=== PATIENT | female | born 1950 | race Caucasian/White ===

== ENCOUNTER → 2016-06-16 | Outpatient (CLI) | payer OTHER, MEDICARE | LOC: FIMAGING 10:22 | PROVIDERS: ATTEND Internal Medicine | DX: M81.0 Age-related osteoporosis without current pathological fracture (principal) ==

== ENCOUNTER → 2016-07-15 | Outpatient (CLI) | payer OTHER, MEDICARE | LOC: FIMAGING 11:41 | PROVIDERS: ATTEND Internal Medicine Endocrinology, Diabetes & Metabolism | DX: E21.3 Hyperparathyroidism, unspecified (principal) | CPT/HCPCS: 78070; A9500 ==

== ENCOUNTER → 2016-10-01 | Outpatient (CLI) | payer OTHER, MEDICARE | LOC: FIMAGING 10:59 | PROVIDERS: ATTEND Surgery | DX: E04.1 Nontoxic single thyroid nodule (principal); E21.3 Hyperparathyroidism, unspecified ==

== ENCOUNTER → 2016-10-13 | Outpatient (CLI) | payer OTHER, MEDICARE | LOC: FIMAGING 14:11 | PROVIDERS: ATTEND Internal Medicine | DX: Z12.31 Encounter for screening mammogram for malignant neoplasm of breast (principal) | CPT/HCPCS: G0202 ==

== ENCOUNTER 2016-11-21 11:29 | Observation (INO) | payer OTHER, MEDICARE ==
[2016-11-21] MEDS ORDERED: NS 1,000 ML IV ONE (11:59)
[2016-11-21] MEDS ORDERED: LIDOCAINE 1% 2 ML INJ ID PRN (11:59)
[2016-11-21] MEDS ORDERED: LR 1,000 ML IV ONE (12:22)
[2016-11-21] MEDS ORDERED: BUPIVACAINE 0.25% 30 ML SDV ONE (12:59)
[2016-11-21] MEDS ORDERED: THROMBIN (BOVINE) 5,000 UNIT VIAL TP ONE (12:59)
[2016-11-21] MEDS ORDERED: MIDAZOLAM 2 MG/2 ML VIAL IVP ONE (13:01)
--- NOTE | 2016-11-21 13:02 | PDANEPAE ---
ANE History of Present Illness hyperparathyroidism ANE Past Medical History - Cardiovascular History Hx Hypertension: No Hx Arrhythmias: Yes Hx Chest Pain: No Hx Coronary Artery / Peripheral Vascular Disease: No Hx CHF / Valvular Disease: No Hx Palpitations: No Cardiovascular History Comment: was told by her dentist years ago she had a heart murmur - Pulmonary History Hx COPD: No Hx Asthma/Reactive Airway Disease: No Hx Recent Upper Respiratory Infection: No Hx Oxygen in Use at Home: No Hx Sleep Apnea: No Sleep Apnea Screening Result - Last Documented: Negative - Neurologic History Hx Cerebrovascular Accident: No Hx Seizures: No Hx Dementia: No Neurologic History Comment: hx of back surgery - Endocrine History Hx Diabetes: No Endocrine History Comment: hyperpararthyroidism - Renal History Hx Renal Disorders: No - Liver History Hx Hepatic Disorders: No - Neurological & Psychiatric Hx Hx Neurological and Psychiatric Disorders: Yes Neurological / Psychiatric History Comment: depression - Cancer History Hx Cancer: No - Congenital Disorder History Hx Congenital Disorders: No - GI History Hx Gastrointestinal Disorders: No - Other Health History Other Health History: wears reading glasses - Chronic Pain History Chronic Pain: No - Surgical History Prior Surgeries: back surgery. appy. trigger finger. breast reduction ANE Review of Systems - Exercise capacity METS (RN): 4 METS ANE Patient History - Allergies Allergies/Adverse Reactions: No Known Allergies Allergy (Unverified 10/20/16 11:40) - Home Medications Home Medications: Aspirin [Aspirin 81mg (*)] 81 mg PO DAILY 10/20/16 [Last Taken 11/14/16] Bupropion HCl [Wellbutrin Xl] 300 mg PO DAILY 10/20/16 [Last Taken Unknown] Cholecalciferol Vit D3 [Vitamin D3 (*)] 2,000 units PO DAILY 10/20/16 [Last Taken 11/20/16] Citalopram [CeleXA] 20 mg PO DAILY 10/20/16 [Last Taken 11/21/16 09:30] RX: SIMVASTATIN 10 mg PO HS 10/20/16 [Last Taken Unknown] - NPO status NPO Since - Liquids (Date): 11/21/16 NPO Since - Liquids (Time): 09:30 NPO Since - Solids (Date): 11/20/16 NPO Since - Solids (Time): 06:30 - Smoking Hx Smoking Status: Never smoked - Family Anes Hx Family Hx Anesthesia Complications: none ANE Labs/Vital Signs - Vital Signs Blood Pressure: 158/98 Heart Rate: 66 Respiratory Rate: 14 O2 Sat (%): 98 Height: 160.02 cm Weight: 45.359 kg ANE Physical Exam - Airway Neck exam: FROM Mallampati Score: Class 2 Mouth exam: normal dental/mouth exam - Pulmonary Pulmonary: no respiratory distress - Cardiovascular Cardiovascular: regular rate and rhythym - ASA Status ASA Status: II ANE Anesthesia Plan Anesthesia Plan: general endotracheal anesthesia
[2016-11-21] MEDS ORDERED: fentaNYL 100 MCG/2 ML INJ ONE (13:04)
[2016-11-21] MEDS ORDERED: PROPOFOL 200 MG/20 ML VIAL ONE (13:04)
[2016-11-21] MEDS ORDERED: ROCURONIUM 50 MG/5 ML VIAL ONE (13:04)
[2016-11-21] MEDS ORDERED: DEXAMETHASONE 4 MG/ML VIAL ONE (13:04)
[2016-11-21] MEDS ORDERED: ONDANSETRON 4 MG/2 ML VIAL ONE (13:04)
[2016-11-21] MEDS ORDERED: HYDROmorphONE/DILAUDID 2 MG/ML INJ ONE (13:04)
[2016-11-21] MEDS ORDERED: LIDOCAINE 2% 5 ML SDV ONE (13:04)
[2016-11-21] MEDS ORDERED: ceFAZolin 2 GM/DEXTROSE 100 ML IV ONE (13:07)
--- NOTE | 2016-11-21 13:09 | PDHPUP ---
History & Physical Update H&P update statement: This history and physical update is based on an assessment of the patient which was completed after admission or registration (within 24 hours), but prior to the surgery/procedure.
[2016-11-21] MEDS ORDERED: ONDANSETRON 4 MG/2 ML VIAL IVP PRN (14:00)
[2016-11-21] MEDS ORDERED: PROMETHAZINE HCL 25 MG/ML INJ IVP PRN ×2 (14:00→15:17)
[2016-11-21] MEDS ORDERED: LABETALOL HCL 50 MG/10 ML SYR IVP PRN (14:00)
[2016-11-21] MEDS ORDERED: fentaNYL 100 MCG/2 ML INJ IVP PRN (14:00)
[2016-11-21] MEDS ORDERED: NALOXONE HCL 0.4 MG/ML INJ IVP PRN (14:00)
[2016-11-21] MEDS ORDERED: epHEDrine SULFATE 10 MG/ML SYR ONE (14:38)
[2016-11-21] MEDS ORDERED: HYDROCODONE/APAP 5/325 TAB PO PRN (15:13)
--- NOTE | 2016-11-21 15:22 | POSTOPPROG ---
Post Op Note Date of Operation: 11/21/16 Surgeon: Markie Paiz (, FACS) Psych Rn: Gifty Sheets MD Anesthesiologist: Walter Rocha MD Anesthesia: GET(General Endotracheal) Pre-op Diagnosis: hyperparathyroidism Procedure: parathyroidectomy Findings: PTH declined from 94 to 23 in 10 min Inf/Abcess present in the surg proc area at time of surgery?: No EBL: Minimal Complications: none
[2016-11-21] MEDS ORDERED: LABETALOL HCL 5 MG/ML 20 ML MDV ONE (16:05)
[2016-11-21 17:42] VITALS: RESP 16
[2016-11-21] MEDS: CALCIUM CARBONATE 500 MG CHEWABLE TAB PO SCH ×2 (18:45→21:02)
[2016-11-21] MEDS: CALCITRIOL 0.25 MCG CAP PO SCH (18:45)
--- NOTE | 2016-11-21 21:47 | GOP ---
[f rep st] OPERATIVE REPORT DATE OF OPERATION: SURGEON: Markie Paiz MD, FACS STEAM FLATTENER: Gifty Sheets MD. ANESTHESIA: General endotracheal, Heather Rocha MD. PREOPERATIVE DIAGNOSIS: POSTOPERATIVE DIAGNOSIS: Hyperparathyroidism. PROCEDURE PERFORMED: Parathyroidectomy. FINDINGS: 240 mg right lower pole parathyroid adenoma confirmed by hypercellular features on frozen section. Intraoperative parathyroid hormones dropping from a preoperative baseline of 94 to 23.5 at the first 10 minute blood draw following removal of the adenoma. Normal-appearing right superior, left inferior and left superior parathyroid glands. Asymmetrical thyroid with small extension of the right lower pole without apparent nodules. ESTIMATED BLOOD LOSS: 5 cc. DESCRIPTION OF PROCEDURE: After informed consent was obtained, the patient was brought to the operating room and placed under general anesthesia. The neck was prepped and draped in usual fashion. Before proceeding, a time-out and identification of the patient was performed. She received 2 g of Ancef preoperatively. The planned incision site was marked on the skin with a marking pen and infiltrated with 0.25% Marcaine and incised transversely between the heads of the sternocleidomastoid. Dissection was carried through the skin and subcutaneous tissues and platysma. Flaps were elevated cephalad to the cricothyroid membrane, inferiorly to the suprasternal notch, medial and laterally to the sternocleidomastoid. The strap muscles were mobilized in the midline and retracted to the right. Preoperative imaging including sestamibi scan and ultrasound revealed a structure suspicious for parathyroid adenoma in the right lower pole position. Dissection was initiated posterior to the strap muscles. Vascular structures were dispatched with a Harmonic scalpel, liberating the muscle from the underlying thyroid, which was moderately vascular. The thyroid gland was rotated medially. The middle thyroid vein was taken down with the Harmonic scalpel. In the inferior pole of the thyroid was a nodular appearing area that was carefully dissected and was ultimately felt to be an extension of the inferior pole rather than a nodule. Dissecting inferior to this revealed the parathyroid adenoma measuring approximately 6 x 3 x 8 mm; this was dissected and the blood supply sealed with the Harmonic scalpel. Specimen was removed from the field and submitted for histologic confirmation. Parathyroid hormone levels, which have been 94 on the day of surgery at baseline , were drawn at 10 and 20 minutes and submitted for analysis at the lab. While we were waiting for frozen section and parathyroid hormone results, we dissected the remainder of the parathyroid glands, identifying the superior gland on the right and subsequently the left superior and inferior glands. The thyroid on both sides appeared normal other than the asymmetric extension of the right inferior pole. There was no pathologic-appearing adenopathy in the central neck. After we were informed of the hypercellular in nature and confirmation of the right lower pole parathyroid, the first of 2 parathyroid hormone levels returned at 23.5, representing a significant drop from baseline. No further dissection was performed at this point. The strap muscles were approximated in the midline with 3-0 Vicryl suture. Platysma was approximated with 3-0 Vicryl suture. The remainder of the Marcaine was infiltrated into the deep subcutaneous tissues and superficial muscular layer. The skin closed with 4-0 Monocryl suture in a subcuticular fashion. Topical Dermabond was applied. The patient was returned extubated to the recovery room in satisfactory condition. Needle, sponge, and instrument count correct. POSTOPERATIVE DIAGNOSIS: Hyperparathyroidism. COMPLICATIONS: None. /[id number]/MODL MTDD
[2016-11-22 05:31] LABS: CALCIUM 9.2 mg/dL (8.5-10.4); CREATININE 0.9 mg/dL (0.6-1.0)
[2016-11-22 05:41] LABS: PTH INTACT NO MINERALS 21.8 pg/ml (10.8-79.4)
[2016-11-22 08:21] VITALS: BP 125/85; PULSE 66; TEMP 98.1; O2SAT 96
[2016-11-22] MEDS ORDERED: ENOXAPARIN 40 MG/0.4 ML SYR SC SCH (09:00)
[2016-11-22] MEDS ORDERED: buPROPion XL 150 MG TAB PO SCH (09:00)
[2016-11-22] MEDS ORDERED: CITALOPRAM 20 MG TAB PO SCH (09:00)
[2016-11-22] MEDS: CALCITRIOL 0.25 MCG CAP PO SCH (09:30)
[2016-11-22] MEDS: CALCIUM CARBONATE 500 MG CHEWABLE TAB PO SCH (09:32)
[2016-11-22] MEDS ORDERED: traMADol 50 MG TAB PO PRN (11:43)
--- NOTE | 2016-11-22 12:02 | PDDCSUM ---
Discharge Summary Discharge Summary: DOA: 11/21/16 DOD: 11/22/16 DC Dx: hyperparathyroidism DC meds: Calcitriol .25mcg #30 CaCarbonate 500 mg po TID Tramadol 50 mg #10 all pre-op meds other than Vit D3 to be continues Procedure: parathyroidectomy11/21/16 Course: Kalie was admitted on the day of surgery. Pre-op PTH was 94 ng/ml. After removal of a 240 mg right lower pole adenoma the PTH fell to 23.5 within 10 minutes. Her Ca++ slowly came down over night and was 9.1 at discharge with a repeat PTH of 21.8. She had very little pain after the surgery and took no pain meds. She was instructed in diet and activity and will follow up as an outpatient. Her wound was uncomplicated. DC condition: good
== END 2016-11-22 12:54 | disposition home or self-care (01) ==
LOC: F3E 11:29
PROVIDERS: ADMIT Surgery; ATTEND Surgery
PROC: 0GBR0ZX Excision of Parathyroid Gland, Open Approach, Diagnostic (ICD-10-PCS; principal; 2016-11-21 13:00)
DX: E21.3 Hyperparathyroidism, unspecified (principal); D35.1 Benign neoplasm of parathyroid gland; M81.0 Age-related osteoporosis without current pathological fracture; E78.5 Hyperlipidemia, unspecified; I10 Essential (primary) hypertension
CPT/HCPCS: 60500; J0690; J1100; J1170; J1650; J2250; J2405; J2704; J3010; J3490

== ENCOUNTER → 2017-06-09 | Outpatient (CLI) | payer OTHER, MEDICARE ==
[~2017-06-09] MED LIST: GADOBUTROL 10 ML VIAL IVP ONE
== END ==
LOC: FIMAGING 13:54
PROVIDERS: ATTEND Psychiatry & Neurology Neurology
DX: G51.3 Clonic hemifacial spasm (principal); R94.02 Abnormal brain scan; Z86.73 Personal history of transient ischemic attack (TIA), and cerebral infarction without residual deficits
CPT/HCPCS: 70553; A9585

== ENCOUNTER → 2017-06-19 | Outpatient (CLI) | payer OTHER, MEDICARE | LOC: FIMAGING 10:08 | PROVIDERS: ATTEND Psychiatry & Neurology Neurology | DX: R09.89 Other specified symptoms and signs involving the circulatory and respiratory systems (principal) ==

== ENCOUNTER → 2017-08-26 | Outpatient (CLI) | payer OTHER, MEDICARE | LOC: FIMAGING 08:38 | PROVIDERS: ATTEND Psychiatry & Neurology Neurology | DX: Z03.89 Encounter for observation for other suspected diseases and conditions ruled out (principal) ==

== ENCOUNTER 2017-09-08 06:26 | Day surgery (SDC) | payer OTHER, MEDICARE ==
[2017-09-08] MEDS ORDERED: BUPIVACAINE 0.25% 30 ML SDV ONE (07:04)
[2017-09-08] MEDS ORDERED: LR 1,000 ML IV ONE (07:14)
[2017-09-08] MEDS ORDERED: ACETIC ACID IRR SOLN 0.25% 1,000 ML BTL ONE (07:14)
[2017-09-08] MEDS ORDERED: LIDOCAINE 1% 2 ML INJ ID PRN (07:14)
[2017-09-08] MEDS ORDERED: SILVER NITRATE APPLICATOR 1 APPL TP ONE (07:38)
[2017-09-08] MEDS ORDERED: POTASSIUM IODIDE 30 ML BTL PO ONE (07:45)
[2017-09-08] MEDS ORDERED: MONSELS-FERRIC SUBSULFATE 8 GM SDV TP ONE (07:45)
--- NOTE | 2017-09-08 07:47 | PDANEPAE ---
ANE History of Present Illness Wide local excision, vulva ANE Past Medical History - Cardiovascular History Hx Hypertension: No Hx Arrhythmias: No Hx Chest Pain: No Hx Coronary Artery / Peripheral Vascular Disease: No Hx CHF / Valvular Disease: No Hx Palpitations: No Cardiovascular History Comment: was told by her dentist years ago she had a heart murmur : MVP by echo in past. HPL - Pulmonary History Hx COPD: No Hx Asthma/Reactive Airway Disease: No Hx Recent Upper Respiratory Infection: No Hx Oxygen in Use at Home: No Hx Sleep Apnea: No Sleep Apnea Screening Result - Last Documented: Negative - Neurologic History Hx Cerebrovascular Accident: No Hx Seizures: No Hx Dementia: No Neurologic History Comment: hx of back surgery : lumbar discectomy - Endocrine History Hx Diabetes: No Endocrine History Comment: hyperpararthyroidism - Renal History Hx Renal Disorders: No - Liver History Hx Hepatic Disorders: No - Neurological & Psychiatric Hx Hx Neurological and Psychiatric Disorders: Yes Neurological / Psychiatric History Comment: depression : on buproprion, celexa - Cancer History Hx Cancer: No - Congenital Disorder History Hx Congenital Disorders: No - GI History GERD: no (hx of heartburn over 15 years ago) Hx Gastrointestinal Disorders: No - Other Health History Other Health History: wears reading glasses - Chronic Pain History Chronic Pain: No - Surgical History Prior Surgeries: back surgery. appy. trigger finger. breast reduction ANE Review of Systems Review of Systems: - Exercise capacity METS (RN): 4 METS ANE Patient History - Allergies Allergies/Adverse Reactions: No Known Allergies Allergy (Unverified 10/20/16 11:40) - Home Medications Home Medications: Aspirin [Aspirin 81mg (*)] 81 mg PO DAILY 10/20/16 [Last Taken 11/14/16] SIMVASTATIN 10 mg PO HS 10/20/16 [Last Taken 09/07/17 20:30] Herbals/Supplements -Info Only 08/17/17 [Last Taken 09/01/17] - NPO status NPO Since - Liquids (Date): 09/08/17 NPO Since - Liquids (Time): 05:30 NPO Since - Solids (Date): 09/07/17 NPO Since - Solids (Time): 19:30 - Anes Hx Anes Hx: no prior problems - Smoking Hx Smoking Status: Never smoked Marijuana use: No - Alcohol Use Alcohol Use: Other (1 glass of wine/week) - Family Anes Hx Family Anes Hx: none Family Hx Anesthesia Complications: none ANE Labs/Vital Signs - Vital Signs Blood Pressure: 157/95 Heart Rate: 59 Respiratory Rate: 16 O2 Sat (%): 96 Height: 160.02 cm Weight: 45.359 kg ANE Physical Exam - Airway Neck exam: decreased ROM Mallampati Score: Class 3 Mouth exam: normal dental/mouth exam - Pulmonary Pulmonary: clear to auscultation - Cardiovascular Cardiovascular: regular rate and rhythym - ASA Status ASA Status: II ANE Anesthesia Plan Anesthesia Plan: GA w LMA
[2017-09-08] MEDS ORDERED: MIDAZOLAM 2 MG/2 ML VIAL IVP ONE (07:52)
[2017-09-08] MEDS ORDERED: fentaNYL 100 MCG/2 ML INJ ONE (07:55)
[2017-09-08] MEDS ORDERED: DEXAMETHASONE 4 MG/ML VIAL ONE (07:55)
[2017-09-08] MEDS ORDERED: PROPOFOL 200 MG/20 ML VIAL ONE (07:55)
--- NOTE | 2017-09-08 08:22 | PDHPUP ---
History & Physical Update H&P update statement: This history and physical update is based on an assessment of the patient which was completed after admission or registration (within 24 hours), but prior to the surgery/procedure. H&P update: no change in patient's condition since H&P completed
[2017-09-08] MEDS ORDERED: ONDANSETRON 4 MG/2 ML VIAL ONE (08:34)
[2017-09-08] MEDS ORDERED: ACETAMINOPHEN 500 MG TAB PO PRN (08:45)
[2017-09-08] MEDS ORDERED: NALOXONE HCL 0.4 MG/ML INJ IVP PRN (08:45)
[2017-09-08] MEDS ORDERED: oxyCODONE IR 5 MG TAB PO PRN (08:45)
[2017-09-08] MEDS ORDERED: HYDROCODONE/APAP 5/325 TAB PO PRN (08:45)
[2017-09-08] MEDS ORDERED: fentaNYL 100 MCG/2 ML INJ IVP PRN (08:45)
[2017-09-08] MEDS ORDERED: KETOROLAC 30 MG/1 ML SDV ONE (08:47)
--- NOTE | 2017-09-08 09:35 | POSTOPPROG ---
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
[2017-09-08 09:50] VITALS: BP 151/87
--- NOTE | 2017-09-08 10:27 | GOP ---
[f rep st] OPERATIVE REPORT DATE OF OPERATION: 09/08/2017 SURGEON: Dorota Cueto MD ANESTHESIA: General LMA. 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 PROCEDURE PERFORMED: 1. Colposcopy vulva and vagina. 2. Wide local excision of vulva. FINDINGS: Through the colposcopy, there was no other lesions, except for the one that was persistent on the perineum. This measured about 5 x 3 mm. INDICATIONS: Patient is a 66-year-old who was referred by Dr. Delia Hardy for vulvar itching and irr itation. There was a lesion noted on the perineum and this was biopsied in July 2017, and noted to be VIN2. Because it was just a biopsy, recommend wide local excision. Patient is in agreement. DESCRIPTION OF PROCEDURE: With informed consent signed, patient was taken to the operating room, [facility] under general anesthesia, placed in low dorsal lithotomy position, prepped and draped in the usua l sterile fashion. Colposcopy then performed using acetic acid throughout the entire external genita genny and then into the vagina, and the only lesion that was noted was the one that was biopsied previo usly. Next, the area was prepped and draped and the lesion was marked with a marker incorporating extra tis dave from the clear margin. It was then injected with 0.25% Marcaine, about 6 cc, and then, a scalpel and pickups used to resect this tissue and 1 mass removal. The entire amount of tissue was probably 1.2 cm x 7 mm. Next, 4-0 Monocryl was used to reapproximate the tissue edges and this ultimately came together very nicely and hemostasis was noted. The patient was placed in a supine position awakened in operating r oom, taken to recovery room in stable condition, tolerated procedure well. COMPLICATIONS: None. /[id number]/MODL
--- NOTE | 2017-09-08 10:38 | POSTANESTH ---
Post Anesthetic Evaluation Cardiovascular Status: Normal, Stable Respiratory Status: Normal, Stable Level of Consciousness/Mental Status: Can Participate in Eval Pain Control: Adequate, Prn Tx Ordered Nausea/Vomiting Control: Adequate, Prn Tx Ordered Complications Possibly Related to Anesthesia: None Noted
== END 2017-09-08 10:01 | disposition home or self-care (01) ==
LOC: FSGY 06:26
PROVIDERS: ATTEND Obstetrics & Gynecology Gynecology
PROC: 0UJH8ZZ Inspection of Vagina and Cul-de-sac, Via Natural or Artificial Opening Endoscopic (ICD-10-PCS; principal; 2017-09-08 08:00)
PROC: 0UBMXZZ Excision of Vulva, External Approach (ICD-10-PCS; principal; 2017-09-08 08:00)
DX: D07.1 Carcinoma in situ of vulva (principal); E21.0 Primary hyperparathyroidism
CPT/HCPCS: J1100; J1885; J2250; J2405; J2704; J3010

== ENCOUNTER → 2017-10-19 | Outpatient (CLI) | payer OTHER, MEDICARE | LOC: FIMAGING 12:40 | PROVIDERS: ATTEND Internal Medicine | DX: Z12.31 Encounter for screening mammogram for malignant neoplasm of breast (principal); Z98.890 Other specified postprocedural states ==

== ENCOUNTER → 2017-12-11 | Outpatient (CLI) | payer OTHER, MEDICARE | LOC: FIMAGING 12:53 | PROVIDERS: ATTEND Surgery | DX: Z13.820 Encounter for screening for osteoporosis (principal); M81.0 Age-related osteoporosis without current pathological fracture ==